=== PATIENT | male | born 1985 | race Hispanic/Latino ===

== ENCOUNTER 2017-12-12 08:06 | Emergency (ER) | payer OTHER, SELFPAY | END 2017-12-12 11:50 | disposition home or self-care (01) | LOC: ERS 08:06 | DX: J02.9 Acute pharyngitis, unspecified (principal); F17.210 Nicotine dependence, cigarettes, uncomplicated | CPT/HCPCS: 87081; 87430; 87804; 99283 ==

== ENCOUNTER 2018-03-05 10:09 | Emergency (ER) | payer OTHER ==
[2018-03-05] MEDS ORDERED: Ketorolac Tromethamine 60 MG/2 ML VIAL ONE (11:52)
== END 2018-03-05 12:27 | disposition home or self-care (01) ==
LOC: ERS 10:09
DX: S16.1XXA Strain of muscle, fascia and tendon at neck level, initial encounter (principal); F17.210 Nicotine dependence, cigarettes, uncomplicated; Z71.6 Tobacco abuse counseling; X50.0XXA Overexertion from strenuous movement or load, initial encounter
CPT/HCPCS: 96372; 99406; J1885

== ENCOUNTER 2019-05-06 12:31 | Emergency (ER) | payer OTHER ==
--- NOTE | 2019-05-06 13:24 | RAD ---
RADIOGRAPH RIGHT HAND 3 VIEWS: 05/06/19 at 1:02 p.m. HISTORY: 34-year-old male with traumatic right hand pain and swelling. FINDINGS: Mildly comminuted fracture at proximal metaphysis of fifth metacarpal, with at least minimal displace ment. No dislocation. The fracture probably does extend to the fifth carpometacarpal joint surface. N o dislocation. IMPRESSION: Acute, traumatic, mildly comminuted, at least minimally displaced fracture at base of fifth metacarpa l. POS: [facility]
== END 2019-05-06 14:22 | disposition home or self-care (01) ==
LOC: ERS 12:31
DX: S62.316A Displaced fracture of base of fifth metacarpal bone, right hand, initial encounter for closed fracture (principal); F17.210 Nicotine dependence, cigarettes, uncomplicated; X58.XXXA Exposure to other specified factors, initial encounter
CPT/HCPCS: 29125

== ENCOUNTER 2019-09-18 09:21 | Emergency (ER) | payer SELFPAY ==
[2019-09-18] MEDS ORDERED: Ketorolac Tromethamine 60 MG/2 ML VIAL ONE (10:52)
--- NOTE | 2019-09-18 11:07 | RAD ---
EXAM: 3 views of the right shoulder HISTORY: Shoulder pain COMPARISON: None FINDINGS: There is no evidence of acute fracture or dislocation. No degenerative changes are present. No soft tissue swelling is seen. The visualized thorax is unremarkable. IMPRESSION: No evidence of acute osseous abnormality.
== END 2019-09-18 12:03 | disposition home or self-care (01) ==
LOC: ERS 09:21
DX: M25.511 Pain in right shoulder (principal); F17.210 Nicotine dependence, cigarettes, uncomplicated
CPT/HCPCS: 96372; J1885

== ENCOUNTER 2020-08-17 09:11 | Emergency (ER) | payer SELFPAY ==
[2020-08-17] MEDS ORDERED: Dexamethasone 4 mg/ml Vial ONE (10:24)
[2020-08-17] MEDS ORDERED: Bicillin LA 2.4 MILL.UNITS/4 ML SYRINGE ONE (10:24)
== END 2020-08-17 11:03 | disposition home or self-care (01) ==
LOC: ERS 09:11
DX: J02.0 Streptococcal pharyngitis (principal); F17.210 Nicotine dependence, cigarettes, uncomplicated
CPT/HCPCS: 87430; 96372; 99283; J0561; J1100

== ENCOUNTER 2021-02-03 22:26 | Emergency (ER) | payer SELFPAY ==
[2021-02-03] MEDS ORDERED: Lorazepam 2 MG/ML VIAL ONE (23:43)
[2021-02-03] MEDS ORDERED: Thiamine HCl 200 MG/2 ML VIAL SLOW IVP SCH (23:45)
[2021-02-03 23:58] LABS: #Eosinphils 0.1 thou/uL (0.0-0.7); #Lymphocytes 1.5 thou/uL (1.20-3.40); #Monocytes 0.5 thou/uL (0.11-0.59); #Neutrophils 4.7 thou/uL (1.40-6.50); %Basophils 0.3 % (0.0-1.0); %Eosinophils 1.7 % (0.0-10.0); %Lymphocytes 21.8 % (21.0-51.0); %Monocytes 7.1 % (0.0-10.0); Hemoglobin 14.9 g/dL (14.0-18.0); Mean Corpuscular HGB CONC 33.2 g/dL (32.0-36.0); Mean Corpuscular Hemoglobin 31.8 pg (27.0-31.0); Mean Corpuscular Volume 95.8 fL (78.0-98.0); Mean Platelet Volume 6.4 fL (7.4-10.4); Platelet Count 319 thou/uL (130-400); Red Blood Cell (RBC) Count 4.69 mill/uL (4.70-6.10); White Blood Cell (WBC) Count 6.8 thou/uL (4.8-10.8)
[2021-02-04 00:19] LABS: Acetaminophen Less than 6.0 mcg/mL (10.0-30.0); Alcohol Less than 10 mg/dL (Less than 10); Salicylate Less than 8.0 mg/dL (15.0-30.0)
[2021-02-04 00:20] LABS: ALT (SGPT) 22 U/L (8-55); AST (SGOT) 22 U/L (5-34); Albumin 4.5 g/dL (3.5-5.0); Alkaline Phosphatase 95 U/L (40-110); Anion Gap 13 mmol/L (10-20); BUN (Urea Nitrogen) 10 mg/dL (8.9-20.6); Bilirubin, Total 0.4 mg/dL (0.2-1.2); Calc. Creatinine Clearance 0 mL/min (70-130); Calcium 9.8 mg/dL (7.8-10.44); Carbon Dioxide 29 mmol/L (22-29); Chloride 103 mmol/L (98-107); Globulin 3.7 g/dL (2.4-3.5); Glucose 97 mg/dL (70-105); Potassium 3.6 mmol/L (3.5-5.1); Protein, Total 8.2 g/dL (6.0-8.3); Sodium 141 mmol/L (136-145)
[2021-02-04] MEDS ORDERED: Multivitamins, Adult 10 ML, Folic Acid 1 MG in Dextrose 5 %-0.45 % NaCl 1,000 ML IV SCH (09:00)
== END 2021-02-04 01:56 | disposition home or self-care (01) ==
LOC: ERS 22:26
DX: F10.20 Alcohol dependence, uncomplicated (principal); R53.81 Other malaise; F17.210 Nicotine dependence, cigarettes, uncomplicated
CPT/HCPCS: 36415; 70450; 71045; 80053; 80307; 82140; 85025; 93005; 96365; 96375; J2060; J3411; J7042

== ENCOUNTER 2022-02-26 14:14 | Emergency (ER) | payer OTHER, SELFPAY | END 2022-02-26 17:04 | disposition home or self-care (01) | LOC: ERS 14:14 | DX: S20.211A Contusion of right front wall of thorax, initial encounter (principal); F17.210 Nicotine dependence, cigarettes, uncomplicated; W01.0XXA Fall on same level from slipping, tripping and stumbling without subsequent striking against object, initial encounter ==